=== PATIENT | male | born 1960 | race Caucasian/White ===

== ENCOUNTER 2017-07-24 12:04 | Day surgery (SDC) | payer BC, OTHER ==
[~2017-07-24] VITALS: Ht 182.9 cm; Wt 93.0 kg
--- NOTE | 2017-07-24 12:37 | NUR ---
PT HAS SINUS PAIN DUE TO SINUS INFECTION
[2017-07-24] MEDS ORDERED: ALLEGRA-D 24 H1 EACH (13:05)
[2017-07-24] MEDS ORDERED: MUCINEX SINUS-1 EAC1 (13:07)
--- NOTE | 2017-07-24 13:35 | NUR ---
07/24/17 133[place] Barber REPORT FROM HIRAM KAUR.
--- NOTE | 2017-08-25 07:48 | OR ---
[facility] [address], [place] [address] Signed DATE OF PROCEDURE: 07/24/17 PREOPERATIVE DIAGNOSES Progressive dysphagia x4 years, known history of hiatal hernia, discontinuance of PPI. 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 PROCEDURE: Esophagogastroduodenoscopy with biopsy. SURGEON: Elaina Cameron MD. ANESTHESIA: Intravenous sedation; Fentanyl 100 mcg and Versed 4 mg. INDICATION This is a 57-year-old white man is a patient of Balbina Gardner PA-C and has had dysphagia for 3-4 years. It has been somewhat progressive recently. He has dysphagia to meat and bread, no problem with liquids. He was treated with PPI medication in the past but discontinued it in favor of a "probiotic approach," which surprisingly was reasonably effective in eliminating his heartburn type symptoms. He has no family history of esophageal cancer. His father who is well known to me has reflux problems from the past as well. He is admitted at this time to undergo upper endoscopy to better characterize the problem as he has dysphagia as described. The risks of bleeding, infection, perforation, and so forth were reviewed in detail. He understands and wished to proceed. FINDINGS There was distal esophagitis and a somewhat dysmorphic GE junction related to eccentric stricture. There was no sign of neoplasm. No evidence of Peterson's epithelium proper. The stomach itself was normal except for the GE junction with hiatal hernia. The pylorus was normal as was the duodenum overall. CLOtest was negative. PROCEDURE The patient was brought to the endoscopy suite and placed in lateral decubitus position after undergoing topical Hurricaine spray hypopharyngeal anesthesia. He was given intravenous sedation to the point of slurred speech and nystagmus. A bite block was placed. An Olympus video upper endoscope was passed in the hypopharynx. The vocal cords appeared normal. Scope was advanced into the esophagus without problem. The distal portion appeared to have inflammatory change and a low-grade stricture. No obvious Schatzki's ring proper. There was no Peterson's epithelium or severe ulceration or varices and certainly no diverticulum. There was a somewhat eccentric ulceration there. The scope was passed in the stomach, which was insufflated with air. Rugal folds appeared normal. The antrum and pylorus were normal. Scope was passed through the Electronically Signed By: ELAINA CAMERON MD 08/25/17 0748 PATIENT NAME: GAEL BATISTA OPERATIVE REPORT DATE OF : 64 PHYSICIAN: ELAINA CAMERON MD REPORT #: [id number] REPORT IS CONFIDENTIAL AND NOT TO BE RELEASED WITHOUT AUTHORIZATION [facility] [address] [place], [place] [address] Signed pylorus into the duodenum, which was also normal. Biopsies were taken the duodenum to assess for celiac disease. The scope was withdrawn. Biopsies taken of the antrum for both LEOBARDO and pathologic testing. Mild inflammatory change was noted but not severe in anyway. Retroflexed view confirmed a poor flap valve consistent with small hiatal hernia. The scope was withdrawn to the distal esophagus where biopsies were then obtained, and subsequently, the midesophagus to assess for eosinophilic esophagitis. The scope was removed. The patient was taken to recovery room in good condition. CONCLUDING DIAGNOSIS Dysphagia is most likely related to reflux-related stricture and hiatal hernia. PLAN We will initiate Prilosec. We will see him back in 6 weeks and assess his progress. He may benefit from anti-reflux operation at some point. MD HARIS Nur/Sanket /[id number] cc: Balbina Gardner PA-C Electronically Signed By: ELAINA CAMERON MD 08/25/17 0748 PATIENT NAME: LYNNEGAELJESSENIA MURO OPERATIVE REPORT DATE OF : 64 PHYSICIAN: ELAINA CAMERON MD REPORT #: [id number] REPORT IS CONFIDENTIAL AND NOT TO BE RELEASED WITHOUT AUTHORIZATION
== END 2017-07-24 14:25 | disposition home or self-care (01) ==
LOC: DS 12:04 → OPS 12:04 → DS 13:00 → OPS 14:25
PROVIDERS: Surgery
PROC: 0DB68ZX Excision of Stomach, Via Natural or Artificial Opening Endoscopic, Diagnostic (ICD-10-PCS; 2017-07-24)
PROC: 0DB98ZX Excision of Duodenum, Via Natural or Artificial Opening Endoscopic, Diagnostic (ICD-10-PCS; principal; 2017-07-24 13:00)
DX: K22.2 Esophageal obstruction (principal); K21.9 Gastro-esophageal reflux disease without esophagitis; Z90.89 Acquired absence of other organs; Z90.49 Acquired absence of other specified parts of digestive tract; Z98.890 Other specified postprocedural states
CPT/HCPCS: 99152; 99153; J2250; J3010; J7120

== ENCOUNTER 2017-10-24 12:58 | Day surgery (SDC) | payer BC, OTHER ==
[~2017-10-24] VITALS: Ht 182.9 cm; Wt 93.0 kg
[~2017-10-24 12:58] MED LIST: ALLEGRA-D 24 H1 EACH; MUCINEX SINUS-1 EAC1
--- NOTE | 2017-10-24 14:30 | NUR ---
10/24/17 1430 Sydney Rolon PT ARRIVED IN PACU SLEEPY. ABD SOFT AND PASSING FLATUS. DR VISITING WITH PT.
--- NOTE | 2017-10-24 17:51 | OR ---
[facility] [address] [place], [place] [address] Signed DATE OF OPERATION: 10/24/2017 SURGEON: Elaina Cameron MD PREOPERATIVE DIAGNOSIS: Colon screening. POSTOPERATIVE DIAGNOSIS: Sigmoid diverticular changes. PROCEDURE: Total colonoscopy to cecum. ANESTHESIA: Intravenous sedation with fentanyl 100 mcg and Versed 6 mg. INDICATION: This 57-year-old white man is a patient of Monica Gardner PA-C. He has been evaluated by me for upper endoscopy for dysphagia and is now treated with proton pump inhibitor medication, which is markedly beneficial to him. He had a low-grade stricture and evidence of Peterson's epithelium. He has never undergone colon evaluation. On that basis, a colonoscopy was recommended based on his age. He understands the risks of bleeding, infection, and perforation and wished to proceed. FINDINGS: The prep was excellent. Complete colonoscopy was undertaken to the cecum without problem. There were diverticula of the sigmoid and left colon. None of them problematic. There is no evidence of polyps or colitis. DESCRIPTION OF PROCEDURE: The patient was brought to the endoscopy suite, placed in the lateral decubitus position, and given intravenous sedation to the point of slurred speech and nystagmus. Digital rectal examination was normal. An Olympus video colonoscope was passed in the rectum and manipulated throughout the colon. Diverticular changes were seen in the sigmoid and left colon. Scope was ultimately advanced to the right colon and good visualization of the cecum was noted. With abdominal wall stabilization, the scope was passed into the cecum itself. The ileocecal valve and appendiceal orifice were normal. The scope was withdrawn from that point and examination undertaken upon withdrawal of the scope showing no sign of Electronically Signed By: ELAINA CAMERON MD 10/24/17 1751 PATIENT NAME: GAEL BATISTA OPERATIVE REPORT DATE OF : 64 PHYSICIAN: ELAINA CAMERON MD REPORT #: [id number] REPORT IS CONFIDENTIAL AND NOT TO BE RELEASED WITHOUT AUTHORIZATION [facility] [address] [place], [place] [address] Signed abnormality other than diverticula previously noted. Retroflexed view of the rectum did show some internal hemorrhoidal changes. The scope was removed and the patient was taken to the recovery room in good condition. CONCLUDING DIAGNOSES: 1. Internal hemorrhoids. 2. Diverticular change. PLAN: Recommend high-fiber diet. Repeat colonoscopy in 10 years, sooner if clinically indicated. He will return to the ongoing care of Monica Gardner PA-C. MD HARIS Nur/VALENTÍN /[id number] cc: Monica Gardner PA-C Electronically Signed By: ELAINA CAMERON MD 10/24/17 1751 PATIENT NAME: GAEL BATISTA OPERATIVE REPORT DATE OF : 64 PHYSICIAN: ELAINA CAMERON MD REPORT #: [id number] REPORT IS CONFIDENTIAL AND NOT TO BE RELEASED WITHOUT AUTHORIZATION
== END 2017-10-24 14:55 | disposition home or self-care (01) ==
LOC: DS 12:58 → OPS 12:58 → DS 14:00 → OPS 14:00
PROVIDERS: Surgery
PROC: 0DJD8ZZ Inspection of Lower Intestinal Tract, Via Natural or Artificial Opening Endoscopic (ICD-10-PCS; principal; 2017-10-24 14:00)
DX: Z12.11 Encounter for screening for malignant neoplasm of colon (principal); K57.30 Diverticulosis of large intestine without perforation or abscess without bleeding; K64.8 Other hemorrhoids; K21.9 Gastro-esophageal reflux disease without esophagitis; Z90.49 Acquired absence of other specified parts of digestive tract; Z90.89 Acquired absence of other organs; Z98.890 Other specified postprocedural states; Z79.899 Other long term (current) drug therapy
CPT/HCPCS: 99153; G0500; J2250; J3010; J7120

== ENCOUNTER 2019-02-17 15:37 | Emergency (ER) | payer BC, OTHER ==
[~2019-02-17] VITALS: Ht 182.9 cm; Wt 93.0 kg
--- OUTSIDE RECORDS SUMMARY | ~2019-02-17 | XMS | Clinical Summary ---
Demographics + + + | Address | [address] | | | [place] [address] | + + + | Home Phone | | + + + | Preferred Language | Unknown | + + + | Marital Status | | + + + | Congregational Affiliation | Unknown | + + + | Race | Unknown | + + + | Ethnic Group | Unknown | + + + Author + + + | Author | [facility] | | | and [place] | + + + | Organization | [facility] | | | and [place] | + + + | Address | Unknown | + + + | Phone | Unavailable | + + + Support + + +---------+ + | Name | Relationship | Address | Phone | + + +---------+ + | Gail Long | ECON | Unknown | | + + +---------+ + Care Team Providers + +------+ + | Care Packing Machine Operator Name | Role | Phone | + +------+ + PP | Unavailable | + +------+ + Allergies Not on File Medications Not on file Active Problems Not on file Social History + +-------+ +--------+------+ | Tobacco Use | Types | Packs/Day | Years | Date | | | | | Used | | + +-------+ +--------+------+ | Never Assessed | | | | | + +-------+ +--------+------+ + + + | Sex Assigned at | Date Recorded | | | | + + + | Not on file | | + + + + + + + | Job Start Date | Occupation | Industry | + + + + | Not on file | Not on file | Not on file | + + + + + + + + | Travel History | Travel Start | Travel End | + + + + + + | No recent travel history available. | + + Plan of Treatment + + + + + | Health Maintenance | Due Date | Last Done | Comments | + + + + + | Vaccine: | | | | | Dtap/Tdap/Td (1 - | 1 | | | | Tdap) | | | | + + + + + | Vaccine: Zoster (1 | | | | | of 2) | 2 | | | + + + + + | Vaccine: Influenza | | | | | (Season Ended) | 9 | | | + + + + + Results Not on filefrom Last 3 Months"
--- OUTSIDE RECORDS SUMMARY | ~2019-02-17 | XMS | Clinical Summary ---
Demographics + + + | Address | [address] | | | [place] [address] | + + + | Home Phone | | + + + | Preferred Language | Unknown | + + + | Marital Status | | + + + | Druze Affiliation | Unknown | + + + | Race | Unknown | + + + | Ethnic Group | Unknown | + + + Author + + + | Author | [facility] | | | and [place] | + + + | Organization | [facility] | | | and [place] | [...] Team Providers + +------+ + | Care Type Caster Name | Role | Phone | + [...]
[2019-02-17] MEDS ORDERED: MELOXICAM7.5 MG PO (17:16)
[2019-02-17] MEDS ORDERED: NORCO 5-325 TA1 EACH PO (17:16)
[2019-02-17] MEDS ORDERED: MEDROL4 MG PO (17:16)
== END 2019-02-17 17:55 | disposition home or self-care (01) ==
LOC: ED 15:37
DX: M54.16 Radiculopathy, lumbar region (principal)
CPT/HCPCS: 72100; 96372; 99283-25; J1885; J7512